=== PATIENT | male | born 1995 | race Caucasian/White ===

== ENCOUNTER 2021-10-01 14:12 | Emergency (ER) | payer OTHER ==
[~2021-10-01] VITALS: Ht 165.1 cm; Wt 63.0 kg
[2021-10-01] MEDS ORDERED: AMOXICILLIN/POTASSIUM CLAVULANATE 875/125MG TAB PO ONE (14:30)
[2021-10-01] MEDS ORDERED: TETANUS, DIPHTHERIA, PERTUSSIS VAC/PF 0.5ML (>10YR OLD) IM ONE (14:30)
[2021-10-01] MEDS ORDERED: AMOX-424 MT (14:35)
[2021-10-01] MEDS ORDERED: EMTR1TAB11 MT (14:35)
[2021-10-01 14:56] VITALS: BP 117/75
== END 2021-10-01 14:57 | disposition home or self-care (01) ==
LOC: ER 14:37
DX: S00.511A Abrasion of lip, initial encounter (principal); W50.3XXA Accidental bite by another person, initial encounter; Y93.89 Activity, other specified; Y92.89 Other specified places as the place of occurrence of the external cause; Y99.8 Other external cause status
CPT/HCPCS: 90471; 90715; 99283